=== PATIENT | male | born 1955 | race American Indian/Alaskan Native ===

== ENCOUNTER 2017-02-17 07:38 | Day surgery (SDC) | payer MEDICAID ==
[2017-02-17] MEDS ORDERED: DIPRIVAN 10 MG/ML IV ONE ×2 (08:00)
[2017-02-17] MEDS ORDERED: NACL 0.9% 1000 ML 1,000 ML IV SCH (08:00)
[2017-02-17] MEDS ORDERED: WATER FOR IRRIG STERILE IR ONE ×2 (08:08→09:27)
[2017-02-17] MEDS ORDERED: WATER FOR IRRIG STERILE ONE (08:09)
--- NOTE | 2017-02-17 08:23 | Anesthesia Day of Surgery ---
Anesthesia Day of Surgery - Day of Surgery Patient Examined: Yes Patient H&P Reviewed: Yes Patient is NPO: Yes
--- NOTE | 2017-02-17 08:24 | Anesthesia Consultation ---
Anesthesia Consult and Med Hx Date of service: 02/17/17 - Airway Anesthetic Teeth Evaluation: Poor (gold grill across upper top risks explained) ROM Head & Neck: Inadequate Mental/Hyoid Distance: Inadequate Mallampati Class: Class III Intubation Access Assessment: Possibly Difficult - Pulmonary Exam CTA: Yes - Cardiac Exam Cardiac Exam: RRR - Pre-Operative Health Status ASA Pre-Surgery Classification: ASA3 Proposed Anesthetic Plan: General - Pulmonary Hx Smoking: Yes COPD: Yes (?) - Cardiovascular System Hx Peripheral Vascular Disease: Yes - Central Nervous System Hx Neuromuscular Disorder: Yes (s/p ACDF) - Other Systems Hx Alcohol Use: Yes (socially) Hx Substance Use: Yes (THC)
--- NOTE | 2017-02-17 09:10 | Short Stay Summary ---
Short Stay Documentation Date of service: 02/17/17 Narrative H&P: 61 yo male presents for colonoscopy. Patient with h/o chronic lower abdominal pain, no prior colonoscopy. Denies GI bleeding. + constipation which he states was 2/2 pain meds. - History H&P: obtained from office Past Medical History: PVD - Allergies and Medications Current Medications: Allergies aspirin Allergy (Verified 02/17/17 08:23) Nausea Fish Containing Products Allergy (Verified 02/17/17 08:23) Vomiting FISH Allergy (Uncoded 04/24/16 14:04) Vomiting Home Medications Medication Instructions Recorded Confirmed Last Taken Type oxyCODONE /ACETAMINOPHEN [Percocet 2 tab PO Q6HR PRN #20 tablet 03/14/15 Unknown Rx 5/325 mg] Gabapentin [Neurontin] 100 mg PO Q8HR 10/14/15 02/17/17 Unknown History Pantoprazole [Protonix] 40 mg PO QDAY #30 tablet 10/16/15 02/17/17 Unknown Rx Lansoprazole [Prevacid] 15 mg PO BID #60 cap 10/30/15 02/17/17 Unknown Rx Ondansetron [Zofran Odt] 4 mg PO Q6H #10 tab.rapdis 10/30/15 02/17/17 Unknown Rx traMADol [Ultram] 50 mg PO Q6HR PRN #14 tablet 10/30/15 02/17/17 Unknown Rx Flomax 1 tab PO DAILY 02/17/17 02/17/17 02/15/17 History Plavix 75 mg PO DAILY 02/17/17 02/17/17 02/11/17 History Active Medications Sodium Chloride (Nacl 0.9% 1000 Ml) 1,000 mls @ 50 mls/hr IV DIRECT JOVON Last Admin: 02/17/17 08:23 Dose: 50 mls/hr - Physical exam General appearance: no acute distress Lungs: Clear to auscultation Heart: Regular rate, Normal S1, Normal S2 Gastrointestinal: normal - Brief post op/procedure progress note Date of procedure: 02/17/17 Pre-op diagnosis: screening colonoscopy, abdominal pain Post-op diagnosis: other (multiple colon polyps, internal hemorrhoids) Procedure: colonoscopy with polypectomy Anesthesia: MAC Findings: multiple colon polyps removed (6). internal hemorrhoids. mild left sided tics Surgeon: FRANK MHAARAJ Estimated blood loss: minimal Pathology: list (Jar A - descending colon polyp, Jar B - ascending colon polyps x 3, Jar C - 2 hepatic colon polyps) Specimen disposition: to lab Condition: stable - Disposition Condition at discharge: Good Disposition: DISCHARGED TO HOME OR SELFCARE Short Stay Discharge Plan Follow up with: SHERWIN MELGAR MD [Primary Care Provider] - 7 Days
--- NOTE | 2017-02-17 09:22 | Operative Report ---
ENDOSCOPIST: Dr. Cristian Suh. PREOPERATIVE DIAGNOSES: Screening colonoscopy, abdominal pain. POSTOPERATIVE DIAGNOSES: Multiple colon polyps removed, moderate to large internal hemorrhoids. ANESTHESIA: Monitored anesthesia care. COMPLICATIONS: No immediate complications. ESTIMATED BLOOD LOSS: Minimal. DESCRIPTION OF PROCEDURE: After consent was obtained, the patient was placed in left lateral decubitus position. The standard Fujinon colonoscope was advanced through the rectum and advanced to the cecum without difficulty. The patient tolerated the procedure well. The quality of the prep was fair. FINDINGS: 1. There were 3 polyps in the ascending colon ranging from 6-8 mm in size, 2 of the polyps were removed with hot snare and the smaller polyp was removed with cold snare. All three polyps were retrieved. 2. There were 2 polyps at the hepatic flexure, 1 polyp was approximately 6 mm in size, removed with hot snare. The second polyp was approximately 5 mm in size, removed with cold snare, both were retrieved. 3. There is a 12-15 mm semi-pedunculated polyp in the descending colon. The polyp was removed with hot snare and retrieved. There was mild left-sided diverticulosis. 4. Moderate to large internal hemorrhoids. IMPRESSION: 1. Multiple colon polyps removed as above. 2. Mild internal hemorrhoids. 3. Mild diverticulosis. RECOMMENDATIONS: 1. Followup pathology. 2. Hold Plavix for 3-5 days, and NSAIDs for 5 days. 3. Likely we will need a repeat colonoscopy in a shorter time interval given the fair prep and number of polyps, possibly in 1-2 years depending on pathology results. 4. High-fiber diet daily. 5. Return to GI Clinic as previously scheduled. JOB# [id number] AUGUSTIN/NTS
--- NOTE | 2017-02-17 10:32 | Post Anesthesia Evaluation ---
- Post Anesthesia Evaluation Patient Participated: No Airway Patent: Yes Stable Respiratory Function: Yes Nausea/Vomiting: No Temp > 96.8F: Yes Pain Manageable: Yes Adequeate Hydration: Yes Anesthesia Complications: No Block Receding Appropriately: No Patient on Ventilator: No
[2017-02-17 14:15] VITALS: BP 137/90
== END 2017-02-17 07:39 | disposition home or self-care (01) ==
LOC: GIO 07:38
PROVIDERS: ATTEND Podiatrist Foot & Ankle Surgery
DX: D12.2 Benign neoplasm of ascending colon (principal); D12.4 Benign neoplasm of descending colon; D12.3 Benign neoplasm of transverse colon; K64.8 Other hemorrhoids; K57.30 Diverticulosis of large intestine without perforation or abscess without bleeding; F12.90 Cannabis use, unspecified, uncomplicated; F17.210 Nicotine dependence, cigarettes, uncomplicated; Z72.89 Other problems related to lifestyle
CPT/HCPCS: 45385; 88305; J2704

== ENCOUNTER 2019-02-15 16:13 | Emergency (ER) | payer OTHER, MEDICAID ==
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
[2019-02-15 17:24] VITALS: BP 102/79
--- NOTE | 2019-02-15 18:12 | XRay Report ---
PROCEDURE: XR KNEE 3V LT TECHNIQUE: 3 views left knee HISTORY: knee pain COMPARISONS: None FINDINGS: No acute fracture or malalignment No joint effusion Enthesophyte superior pole patella. Mild patellar spurring Mild degenerative change at the medial lateral compartments. Clips noted posterior distal 5. Atherosclerotic vascular calcification noted IMPRESSION: No acute fracture or malalignment Mild to moderate arthritic changes. This document is electronically signed by Octavio Cade MD., Feb 15 2019 06:10:17 PM ET
--- NOTE | 2019-02-15 18:21 | XRay Report ---
PROCEDURE: XR SPINE CERVICAL 2-3V TECHNIQUE: 5 views cervical spine HISTORY: neck pain COMPARISONS: None FINDINGS: Images demonstrate anterior plating from C3 through C7. There are intervertebral disc spacers present as well. Bones are osteopenic. There is extensive degenerative facet osteoarthritis. C1 lateral masses align normally on C2. The base of the odontoid is intact. Imaged lung apices are clear. IMPRESSION: Anterior cervical plating from C2 to C7 with intervertebral disc spacers. No priors for comparison. N o evidence for misplacement of the hardware or hardware failure. . This document is electronically signed by Monet Bills MD., Feb 15 2019 06:19:32 PM ET
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
[2019-02-15] MEDS ORDERED: TYLENOL ONE (19:07)
[2019-02-15] MEDS ORDERED: FLEXERIL ONE (19:07)
[2019-02-15] MEDS ORDERED: IBUPROFEN PO ONE ×2 (19:07→19:14)
[2019-02-15] MEDS ORDERED: FLEXERIL PO ONE (19:14)
[2019-02-15] MEDS ORDERED: TYLENOL PO ONE (19:14)
[2019-02-15] MEDS ORDERED: ZOFRAN ODT PO ONE (19:19)
[2019-02-15] MEDS ORDERED: NORCO 5/325 PO ONE (19:19)
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
== END 2019-02-15 22:40 | disposition home or self-care (01) ==
LOC: ED 16:13
DX: S29.011A Strain of muscle and tendon of front wall of thorax, initial encounter (principal); S43.91XA Sprain of unspecified parts of right shoulder girdle, initial encounter; M62.830 Muscle spasm of back; M62.838 Other muscle spasm; Z88.6 Allergy status to analgesic agent; Z91.013 Allergy to seafood; V89.2XXA Person injured in unspecified motor-vehicle accident, traffic, initial encounter; Y93.89 Activity, other specified; Y92.488 Other paved roadways as the place of occurrence of the external cause; Y99.8 Other external cause status
CPT/HCPCS: 70450; 71046; 72040; 72125; 72128; 99284; Q0162

== ENCOUNTER 2021-08-27 12:50 | Emergency (ER) | payer OTHER, MEDICAID ==
[2021-08-27 14:50] VITALS: BP 188/109
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
== END 2021-08-27 16:15 ==
LOC: ED 12:50
DX: Z04.1 Encounter for examination and observation following transport accident (principal); Z53.21 Procedure and treatment not carried out due to patient leaving prior to being seen by health care provider; V87.7XXA Person injured in collision between other specified motor vehicles (traffic), initial encounter; Y93.89 Activity, other specified; Y92.488 Other paved roadways as the place of occurrence of the external cause; Y99.8 Other external cause status